=== PATIENT | male | born 1935 | race Caucasian/White ===

== ENCOUNTER → 2017-01-31 | Outpatient (CLI) | payer MEDICARE, BC ==
[~2017-01-31] MED LIST: ISOVUE-370 76% 100ML VIAL (Q9967) As Ordered ONE
--- NOTE | 2017-01-31 10:00 | REP ---
Clinical: Chronic medical renal disease with cystic changes. Technique: Axial precontrast, arterial phase, corticomedullary phase and delayed phase images of the abdomen using 100 ml Isovue 370 intravenous contrast material with coronal and sagittal re-formations. Findings: The kidneys demonstrate mild chronic perinephric stranding without hydronephrosis, nephrolithiasis or mass lesion. Bilateral simple cysts are identified including a 3 cm right parapelvic renal cyst and 7.1 cm right lower pole renal cyst as well as small left renal cysts measuring up to 1.6 cm. Multiple scattered hepatic cysts are identified measuring up to 2 cm maximal diameter. No further hepatic lesions are noted. Spleen, pancreas, gallbladder, and bilateral adrenal glands are normal. Visualized portions of the enteric system are without obstruction or acute inflammatory process. Lung bases demonstrate mild chronic changes. Visualized portions of the heart and pericardium demonstrate atherosclerotic change without pericardial effusion. Impression: Simple appearing hepatic and bilateral renal (right greater than left) cysts as described above. No further hepatic or renal abnormalities are identified. Signed by Tj Moreira MD 01/31/2017 09:51 A
== END ==
LOC: M RAD 09:00
PROVIDERS: ATTEND Internal Medicine Nephrology
DX: N18.3 Chronic kidney disease, stage 3 (moderate) (principal); N28.1 Cyst of kidney, acquired; I12.9 Hypertensive chronic kidney disease with stage 1 through stage 4 chronic kidney disease, or unspecified chronic kidney disease; K76.89 Other specified diseases of liver
CPT/HCPCS: 74170; Q9967

== ENCOUNTER → 2018-01-15 | Outpatient (REF) | payer MEDICARE, BC ==
[2018-01-15 13:52] LABS: FERRITIN 151 NG/ML (26-388); IRON (FE) 91 UG/DL (65-175); PERCENT SATURATION 27.8 % (19.7-50.0); TOTAL IRON BINDING CAPACITY 327 UG/DL (250-450)
[2018-01-15 13:58] LABS: VITAMIN B12 LEVEL 686 PG/ML
[2018-01-15 13:59] LABS: FOLATE 10.9 NG/ML
[2018-01-19 00:07] LABS: METHYLMALONIC ACID 239 nmol/L (0-378)
== END ==
LOC: M LAB REF 13:06
DX: D64.9 Anemia, unspecified (principal)
CPT/HCPCS: 82746

== ENCOUNTER 2020-12-19 09:37 | Emergency (ER) | payer MEDICARE, BC ==
[~2020-12-19] VITALS: Ht 177.8 cm; Wt 71.8 kg
[2020-12-19] MEDS ORDERED: LOSA25TA14 PO (09:58)
[2020-12-19] MEDS ORDERED: LEVO50TA5 PO (09:58)
[2020-12-19] MEDS ORDERED: DONETAB6 PO (09:58)
[2020-12-19 10:32] LABS: BASO % 0.4 % (0.0-1.0); EOS % 0.2 % (0.0-3.0); HEMATOCRIT 40.3 % (42.0-52.0); HEMOGLOBIN 12.8 g/dl (13.5-17.5); LYMPH # 0.9 10^3/uL (1.5-5.0); LYMPH % 8.8 % (24.0-44.0); MEAN CORPUSCULAR HEMOGLOBIN 32.2 pg (27.0-33.0); MEAN CORPUSCULAR HGB CONC 31.8 g/dl (32.0-36.5); MEAN CORPUSCULAR VOLUME 101.3 fl (80.0-96.0); MONO # 0.5 10^3/uL (0.0-0.8); MONO % 5.6 % (2.0-8.0); NEUTROPHILS # 8.2 10^3/uL (1.5-8.5); NEUTROPHILS % 84.5 % (36.0-66.0); PLATELET COUNT, AUTOMATED 325 10^3/uL (150-450); RED BLOOD COUNT 3.98 10^6/uL (4.30-6.10); WHITE BLOOD COUNT 9.7 10^3/uL (4.0-10.0)
--- NOTE | 2020-12-19 10:39 | REP ---
INDICATION: wkness. COMPARISON: None TECHNIQUE: Single AP view of the chest performed portably with the patient upright. FINDINGS: There is increased density inferiorly in the left lung, possibly left lower lobe infiltrate. There is pleural thickening along the left lateral chest wall. There is a nodular density inferiorly in the right lung measuring 13 mm. The right lung is otherwise clear. Cardiac size is normal. The natan, mediastinum, and skeletal structures are unremarkable, except for thoracic scoliosis convex right. IMPRESSION: Pleural thickening along the left lateral chest wall. Increased lung density inferiorly in the left lung, possibly left lower lobe infiltrate. 13 mm lung nodule in the right. <Electronically signed by Victorino Elkins > 12/19/20 [id number]
--- NOTE | 2020-12-19 10:45 | REPVR ---
PROCEDURE INFORMATION: Exam: CT Head Without Contrast Exam date and time: 12/19/2020 10:29 AM Age: 85 years old Clinical indication: Injury or trauma; Fall; Blunt trauma (contusions or hematomas); Additional info: Questionable fall TECHNIQUE: Imaging protocol: Computed tomography of the head without contrast. Radiation optimization: All CT scans at this facility use at least one of these dose optimization techniques: automated exposure control; mA and/or kV adjustment per patient size (includes targeted exams where dose is matched to clinical indication); or iterative reconstruction. COMPARISON: No relevant prior studies available. FINDINGS: Brain: Patchy lucencies in the white matter are nonspecific but most suggestive of chronic microvascular ischemic disease. There is no evidence for large acute cortical infarct. No intracranial hemorrhage or extraaxial collection is identified. There is no significant intracranial mass effect. Cerebral ventricles: The ventricles and sulci are moderately prominent, in concordance with moderate global atrophy. Bones/joints: Unremarkable. No acute fracture. Paranasal sinuses: Visualized sinuses are unremarkable. No fluid levels. Mastoid air cells: Visualized mastoid air cells are well aerated. Soft tissues: Unremarkable. IMPRESSION: No CT evidence for acute intracranial abnormality. Electronically signed by: Tyelr So On 12/19/2020 10:44:57 AM
[2020-12-19 11:02] LABS: ALBUMIN 3.4 GM/DL (3.2-5.2); ALT/SGPT 14 U/L (12-78); BILIRUBIN,DIRECT < 0.1 MG/DL (0.0-0.2); BILIRUBIN,TOTAL 0.3 MG/DL (0.2-1.0); BLOOD UREA NITROGEN 23 MG/DL (7-18); CALCIUM LEVEL 8.5 MG/DL (8.8-10.2); CARBON DIOXIDE LEVEL 27 MEQ/L (21-32); CHLORIDE LEVEL 105 MEQ/L (98-107); CK-MB VALUE MASS 2.2 NG/ML (<3.6); CPK CREATINE PHOSPHOKINASE 104 U/L (39-308); CREATININE FOR GFR 1.46 MG/DL (0.70-1.30); GLOMERULAR FILTRATION RATE 48.6 (>35); GLUCOSE, FASTING 81 MG/DL (70-100); LIPASE 962 U/L (73-393); MB/CK RELATIVE INDEX 2.12 (< OR =4); POTASSIUM SERUM 4.2 MEQ/L (3.5-5.1); SODIUM LEVEL 139 MEQ/L (136-145); TROPONIN I 0.03 NG/ML (< 0.10)
[2020-12-19] MEDS ORDERED: ISOVUE-370 76% 100ML VIAL As Ordered ONE (12:22)
--- NOTE | 2020-12-19 13:28 | REP ---
INDICATION: abnormal cxr, and elev lipase. COMPARISON: Portable plain film study of the chest earlier today. TECHNIQUE: PE chest CT with IV contrast, CT angiography. FINDINGS: There are no emboli in the pulmonary trunk or central pulmonary arteries. There are no emboli in the pulmonary artery lobar or segment branches. There is circumferential irregular pleural thickening in the left hemithorax. There is a small calcific pleural plaque anteriorly in the left hemithorax. There are multiple calcific pleural plaques anteriorly in the right hemithorax without pleural thickening. There is no right lung nodule by CT. Therefore, the nodular density identified on the comparison portable plain film study is likely artifact from the anterior calcific pleural plaque. There is a small left pleural effusion. There is volume loss in the left hemithorax, likely a consequence of the pleural thickening. The thoracic aorta is unremarkable. Cardiac size normal. There is no pericardial effusion. IMPRESSION: There are no infiltrates. There is a 3.4 cm focal density in the left lower lobe, nonspecific, atelectasis versus artifact from pleural effusion versus true lung nodule. There is circumferential irregular pleural thickening in the left hemithorax. There is diffuse volume loss in left hemithorax, possibly secondary to the pleural thickening. There is a small calcific pleural plaque anteriorly in the left hemithorax. There is a small left pleural effusion. There is a nodule like density posteriorly inferiorly in the left lower lobe, nonspecific, atelectasis versus artifact from pleural effusion versus true lung nodule. There is no lung nodule in the right lung. There are calcific pleural plaques anteriorly in the right hemithorax. One of these pleural plaques could mask urate as a lung nodule on plain films. There is no mediastinal or hilar lymph node enlargement. No axillary adenopathy. <Electronically signed by Victorino lEkins > 12/19/20 [id number]
--- NOTE | 2020-12-19 13:45 | REP ---
INDICATION: abnormal cxr, and elev lipase. COMPARISON: Abdomen/pelvis CT dated 01/31/2017 without and with IV contrast. TECHNIQUE: Abdomen/pelvis CT with IV contrast performed contiguously with the chest CT this same date. FINDINGS: There is irregular pleural thickening within the visualized lower lung garcia in the left hemithorax. This was not present previously. There is a small left pleural effusion, not present previously. There is a nodular density versus infiltrate in the left lower lobe on the current study, not present previously. There are several sharply circumscribed hypodensities in the liver, similar to the prior study, compatible with hepatic cysts. The gallbladder is unremarkable and unchanged. The head, body and tail of the pancreas are unremarkable and unchanged. There is no evidence of focal or diffuse pancreatic enlargement. No pancreatic inflammation. No pseudocyst. No pancreatic duct dilatation. There is a Bosniak type 1 3 cm right renal peripelvic cyst, unchanged from the prior study. There is a Bosniak type 1 right renal lower pole 7.7 cm cyst. This measures 7.1 cm previously. There are a few small left renal Bosniak type 1 cysts, unchanged There is no hydronephrosis or perinephric stranding. The abdominal aorta is unremarkable except for calcified atheroma. There is no periaortic adenopathy or mass. The bowel and mesentery are unremarkable except for occasional descending colon and sigmoid colon diverticula without diverticulitis. Pelvis: The bladder is unremarkable. There is no adenopathy or ascites. There is grade 1 concave compression deformity of the L4 vertebral body as an interval change. There is degenerative disc disease at L5-S1. IMPRESSION: The findings in the left lung were not present on the comparison study. The pancreas has an unremarkable appearance by CT. There is no ascites, adenopathy or mass. There are hepatic and renal cysts, not significantly changed. Diverticulosis without diverticulitis. Grade 1 compression deformity of the L4 superior endplate. <Electronically signed by Victorino Elkins > 12/19/20 [id number]
[2020-12-19 14:22] VITALS: BP 143/70
--- NOTE | 2020-12-19 19:09 | ECGEPIP ---
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
--- NOTE | 2020-12-20 06:50 | ED PDOC ---
Post-Departure Follow-Up dr morataya faxed formal report of ct chest and ct abd/p for fu Jose Walsh MD Dec 20, 2020 06:49
== END 2020-12-19 14:30 | disposition home or self-care (01) ==
LOC: EDBD 09:37 → M ED 09:37
DX: R53.1 Weakness (principal); R74.8 Abnormal levels of other serum enzymes; J90 Pleural effusion, not elsewhere classified; R91.8 Other nonspecific abnormal finding of lung field; I10 Essential (primary) hypertension; F03.90 Unspecified dementia, unspecified severity, without behavioral disturbance, psychotic disturbance, mood disturbance, and anxiety; Z79.899 Other long term (current) drug therapy
CPT/HCPCS: 70450; 71045; 71275; 74177; 80048; 80076; 81001; 82550; 82553; 83690; 84484; 85025; 93005; 99285; Q9967

== ENCOUNTER 2021-01-23 13:27 | Inpatient (IN) | payer MEDICARE, BC ==
[~2021-01-23] VITALS: Ht 177.8 cm; Wt 71.1 kg
[~2021-01-23 13:27] MED LIST changes: +DONETAB6 PO; -ISOVUE-370 76% 100ML VIAL (Q9967) As Ordered ONE; +LEVO50TA5 PO; +LOSA25TA14 PO
[2021-01-23] MEDS ORDERED: METOPROLOL TART 25 MG TABLET PO ONE (14:55)
[2021-01-23] MEDS: METOPROLOL 5 MG/5 ML VIAL IV SCH ×2 (15:10→15:17)
[2021-01-23 15:14] LABS: BASO % 0.1 % (0.0-1.0); EOS % 0.1 % (0.0-3.0); HEMATOCRIT 39.8 % (42.0-52.0); HEMOGLOBIN 12.4 g/dl (13.5-17.5); LYMPH # 0.7 10^3/uL (1.5-5.0); LYMPH % 7.5 % (24.0-44.0); MEAN CORPUSCULAR HEMOGLOBIN 31.6 pg (27.0-33.0); MEAN CORPUSCULAR HGB CONC 31.2 g/dl (32.0-36.5); MEAN CORPUSCULAR VOLUME 101.3 fl (80.0-96.0); MONO # 0.6 10^3/uL (0.0-0.8); NEUTROPHILS # 8.2 10^3/uL (1.5-8.5); NEUTROPHILS % 85.6 % (36.0-66.0); PLATELET COUNT, AUTOMATED 417 10^3/uL (150-450); RED BLOOD COUNT 3.93 10^6/uL (4.30-6.10); WHITE BLOOD COUNT 9.5 10^3/uL (4.0-10.0)
[2021-01-23 15:40] LABS: RSV AMPLIFICATION NEGATIVE (NEGATIVE)
[2021-01-23 15:44] LABS: CALCIUM LEVEL 8.5 MG/DL (8.8-10.2); CREATININE FOR GFR 2.05 MG/DL (0.70-1.30); GLOMERULAR FILTRATION RATE 32.9 (>35); MAGNESIUM LEVEL 2.8 MG/DL (1.8-2.4); POTASSIUM SERUM 4.8 MEQ/L (3.5-5.1)
[2021-01-23 15:50] LABS: ALBUMIN 3.3 GM/DL (3.2-5.2); ALT/SGPT 216 U/L (12-78); BILIRUBIN,DIRECT 0.4 MG/DL (0.0-0.2); BILIRUBIN,TOTAL 1.1 MG/DL (0.2-1.0); CK-MB VALUE MASS 3.3 NG/ML (<3.6); CPK CREATINE PHOSPHOKINASE 131 U/L (39-308); LIPASE 435 U/L (73-393); MB/CK RELATIVE INDEX 2.52 (< OR =4); TOTAL PROTEIN 7.1 GM/DL (6.4-8.2); TROPONIN I < 0.02 NG/ML (< 0.10)
[2021-01-23] MEDS ORDERED: NS 500 ML IV ONE (15:50)
--- NOTE | 2021-01-23 16:00 | REP ---
INDICATION: pre-admission. COMPARISON: 12/19/2020 also portable TECHNIQUE: The technique utilized in obtaining the radiograph has magnified the cardiac silhouette and attenuated the interstitial markings. FINDINGS: There is cardiomegaly accentuated by technique. There is unchanged pleural thickening along the left lateral chest wall. There is an unchanged nodule in the right lower lung field. Streaky and patchy opacities are seen in the left lower lobe. These have increased somewhat compared to the prior exam. There is no change in the osseous structures. IMPRESSION: 1. Chronic changes as described above. 2. Persistent left lower lobe opacities which do appear to have increased from the prior exam. Chronic atelectasis suspected, however, pneumonia cannot be ruled out <Electronically signed by Abimael Guzman > 01/23/21 [id number]
[2021-01-23] MEDS ORDERED: METOPROLOL 5 MG/5 ML VIAL IV PRN (17:05)
[2021-01-23] MEDS ORDERED: NS 1,000 ML IV SCH (17:30)
--- NOTE | 2021-01-23 18:03 | HPEPDOC ---
General Date of Admission January 23, 2021 at 16:58 Date of Service: January 23, 2021 Chief Complaint The patient is a 85-year-old male admitted with a reason for visit of Acute Or Chronic Renal Failure Dementia Afib. Source: Family Exam Limitations: Dementia, Hard of hearing History of Present Illness Mr. Aquino is an 85 year old male with dementia and hypertension who presents for declining physical and mental ability and found to have new onset atrial fi brillation and GT on CKD. HE was diagnosed with dementia for 5 to 6 years and has been living with his at home. In the past months, he started to decline. In the past 2 weeks, he needed help to ambulate and had frequent falls. In addition, his appetite has become worse with worsening fatigue and agitation. His is also elderly at 85 years old and has been having trouble taking care of him at home. When he falls, she is having trouble getting him back up. He was brought into the ED. While here, he was found to have new onset atrial fibrillation with RVR. He was given 25mg PO Lopressor and 5mg IV Lopressor which controlled his heart rate. In addition, he was having labored breathing and required 2L of oxygen when he normally does not use oxygen. Work up was significant for acute on chronic renal failure. Patient will be admitted for new onset atrial fibrillation with RVR and GT on CKD. Otherwise, discussed with both daughter (who was present) and (Apurva Aquino [phone], spoke over the phone) about anticoagulation and MOLST. I discussed risks and benefits with and daughter and both are in agreement to starting anticoagulation. I discussed code status, and both in agreement for DNR/DNI. Otherwise, cannot care for patient at home. Patient is falling frequently, and she cannot life him up. is considering placement and would like [facility]. Daughter is a nurse here and would also like [facility]. Home Medications Scheduled Levothyroxine Sodium (Levothyroxine Sodium) 50 Mcg Tablet, 50 MCG PO DAILY, (Re ported) Allergies Coded Allergies: No Known Allergies (Unverified , 12/19/20) Past Medical History Medical History 1. Hypertension 2. Hypothyroidism 3. 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 Hearing loss Surgical History 1. Bilateral cataracts Family History Father: History of [place], HBP, and obesity Mother: History of Alzheimer's dementia, stomach cancer, and hip fracture Social History * Smoker: Denies Alcohol: occationally (beer) Drugs: denies A-FIB/CHADSVASC A-FIB History Current/History of A-Fib/PAF?: Yes Current PO Anticoag Therapy: Yes Age/Risk Factor Scoring CHADSVASC: CHADSVASC Response (Comments) Value Age Risk Factor Age >/= 75 years old 2 Gender Risk Factor Male 0 Hx of CHF No 0 Hx of HTN Yes 1 Hx of Stroke/TIA/or VTE No 0 Hx of Diabetes No 0 Hx of Vascular Disease No 0 Total 3 Treatment Treatment ordered: Apixaban Review of Systems Constitutional: Denies: Chills, Fever Eyes: Reports: Other (legally blind in left eye) ENT: Denies: Head Aches Skin: Denies: Rash Pulmonary: Denies: Dyspnea, Cough Cardiovascular: Denies: Chest Pain Gastrointestinal: Reports: Abdominal Pain (once in a while but not now) Genitourinary: Reports: Dysuria (once in a while but not now), Incontinence Hematologic: Denies: Bruising Neurological: Denies: Numbness Psych: Denies: Depression Physical Examination General Exam: Positive: Alert Eye Exam: Negative: Sclera icteric ENT Exam: Positive: Atraumatic Neck Exam: Positive: Supple Chest Exam: Positive: Clear to auscultation Heart Exam: Positive: Rate Normal, Irregular Rhythm Abdomen Exam: Positive: Normal bowel sounds, Soft; Negative: Tenderness Extremity Exam: Negative: Edema Neuro Exam: Positive: Other (Hard of hearing, could not participatein neurologic exam) Psych Exam: Negative: Memory Intact Vital Signs Vital Signs Date Time Temp Pulse Resp B/P (MAP) Pulse Ox O2 Delivery O2 Flow Rate FiO2 01/23/21 16:15 78 20 130/99 (109) 89 Nasal Cannula 2.0 01/23/21 13:28 96.2 Laboratory Data Labs 24H Laboratory Tests 2 01/23/21 14:28: Immature Granulocyte % (Auto) 0.7, Neutrophils (%) (Auto) 85.6H, Lymphocytes (%) (Auto) 7.5L, Monocytes (%) (Auto) 6.0, Eosinophils (%) (Auto) 0.1, Basophils (%) (Auto) 0.1, Neutrophils # (Auto) 8.2, Lymphocytes # (Auto) 0.7L, Monocytes # (Auto) 0.6, Eosinophils # (Auto) 0.0, Basophils # (Auto) 0.0, Nucleated Red Blood Cells % (auto) 0.3H, Anion Gap 8, Glomerular Filtration Rate 32.9L, Calcium Level 8.5L, Magnesium Level 2.8H, Total Bilirubin 1.1H, Direct Bilirubin 0.4H, Aspartate Amino Transf (AST/SGOT) 116H, Alanine Aminotransferase (ALT/SGPT) 216H, Alkaline Phosphatase 172H, Total Creatine Kinase 131, Creatine Kinase MB 3.3, Creatine Kinase MB Relative Index 2.52, Troponin I < 0.02, Total Protein 7.1, Albumin 3.3, Albumin/Globulin Ratio 0.9, Lipase 435H, Coronavirus (COVID-19)(PCR) NEGATIVE, Influenza Type A (RT-PCR) NEGATIVE, Influenza Type B (RT-PCR) NEGATIVE, Respiratory Syncytial Virus (PCR) NEGATIVE CBC/BMP Laboratory Tests 01/23/21 14:28 Assessment/Plan Mr. Aquino is an 85 year old male with dementia and hypertension who presents for declining physical and mental ability and found to have new onset atrial fibrillation and GT on CKD. Will monitor patient on telemetry and obtain echocardiogram. Patient has hypothyroidism. Will check TSH and free T4 tomorrow. Otherwise, patient has GT on CKD. He has poor appetite and this may be related to poor oral intake. His PCP discontinue losartan two days ago. Will continue monitoring renal function. Patient has physically declined and family is looking for placement at [facility]. Will order PT/OT to evaluate patient. Plan / VTE VTE Prophylaxis Ordered?: Yes Plan Plan 1. New onset atrial fibrillation with RVR -Start metoprolol 25mg TID with holding parameters -Discussed risk and benefits with and daughter. Agreement to starting AC -Starting apixaban 2.5mg BID 2. GT on CKD -Unknown baseline, but last creatinine was 1.46 -Today, Creatinine 2 -PCP had stop Losartan -Patient has poor oral intake as well -Received 500mL fluid bolus in ED -Patient picks on leads and probe. May not be able to give continuous IVF. May do better with intermittent bolus of fluid -Encourage oral intake of fluids -Monitor BMP 3. Dementia -Supportive care -Will order CT head 4. Debility -Patient has become weaker, requiring assist -PT/OT -Patient may need rehab. Family is requesting placement at [facility] 5. Hypothyroidism -Continue levothyroxine -Check TSH and Free T4 -Patient may be non-compliant at home with medication 6. Hypertension -PCP had discontinued losartan -Monitor BP while on Lopressor 7. DVT ppx -Apixaban Disposition: Pending improvement in renal function and PT/OT. Due to his dementia family is looking placement. Patient may need rehab too. Looking into [facility]. BRITTA MOSQUEDA DO January 23, 2021 18:03
--- NOTE | 2021-01-23 18:49 | REPVR ---
PROCEDURE INFORMATION: Exam: CT Head Without Contrast Exam date and time: 01/23/2021 5:58 PM Age: 85 years old Clinical indication: Injury or trauma; Fall; Blunt trauma (contusions or hematomas); Additional info: History of frequent falls, dementia TECHNIQUE: Imaging protocol: Computed tomography of the head without contrast. Radiation optimization: All CT scans at this facility use at least one of these dose optimization techniques: automated exposure control; mA and/or kV adjustment per patient size (includes targeted exams where dose is matched to clinical indication); or iterative reconstruction. COMPARISON: CT Head without contrast 12/19/2020 10:29 AM FINDINGS: Brain: A small chronic lacunar infarct is again visualized within the left basal ganglia. There is a stable small chronic infarct within the right cerebellar lobe. No acute intracranial hemorrhage is visualized. The white-heller differentiation is otherwise preserved demonstrating no acute territorial type infarct. There are periventricular foci of white matter hypodensity, likely representing small vessel ischemic disease. The acuity of the white matter disease is indeterminate. There is no midline shift. Cerebral ventricles: There is moderate prominence of the ventricles and sulci, compatible with atrophy. Bones/joints: The calvarium demonstrates no evidence for a depressed fracture. Paranasal sinuses: Visualized sinuses are unremarkable. No fluid levels. Mastoid air cells: No mastoid effusion. Orbital cavity: Bilateral orbital lens implants. Vasculature: Intracranial atherosclerosis visualized. Soft tissues: Unremarkable. IMPRESSION: 1. No acute intracranial hemorrhage or acute territorial type infarct. 2. A small chronic lacunar infarct is again visualized within the left basal ganglia. There is a stable small chronic infarct within the right cerebellar lobe. 3. There are periventricular foci of white matter hypodensity, likely representing small vessel ischemic disease. 4. Moderate atrophy. Electronically signed by: Silver Guevara On 01/23/2021 18:49:21 PM
[2021-01-23 19:00] VITALS: BP 146/67
[2021-01-23] MEDS: APIXABAN 2.5 MG TAB (ELIQUIS) PO SCH (20:10)
[2021-01-23] MEDS: METOPROLOL TART 25 MG TABLET PO SCH (20:10)
[2021-01-23] MEDS: LORazepam 1 MG TAB PO PRN (20:10)
[2021-01-23] MEDS ORDERED: APIXABAN 5 MG TAB (ELIQUIS) PO SCH (21:00)
[2021-01-23] MEDS: RAMELTEON 8 MG TAB (ROZEREM) PO PRN (22:13)
[2021-01-24] VITALS: BP 147/80
[2021-01-24] MEDS: LORazepam 1 MG TAB PO PRN (02:17)
[2021-01-24 04:00] VITALS: BP 173/83
[2021-01-24] MEDS ORDERED: QUEtiapine FUMARATE 25 MG TAB PO SCH (04:25)
[2021-01-24 04:34] LABS: HEMATOCRIT 35.9 % (42.0-52.0); MEAN CORPUSCULAR HEMOGLOBIN 31.5 pg (27.0-33.0); MEAN CORPUSCULAR HGB CONC 30.6 g/dl (32.0-36.5); MEAN CORPUSCULAR VOLUME 102.9 fl (80.0-96.0); PLATELET COUNT, AUTOMATED 372 10^3/uL (150-450); RED BLOOD COUNT 3.49 10^6/uL (4.30-6.10); WHITE BLOOD COUNT 8.9 10^3/uL (4.0-10.0)
[2021-01-24] MEDS: LEVOTHYROXINE 50MCG TABLET (0.05MG) PO SCH (04:52)
[2021-01-24 05:06] LABS: BLOOD UREA NITROGEN 54 MG/DL (7-18); CALCIUM LEVEL 8.8 MG/DL (8.8-10.2); CARBON DIOXIDE LEVEL 25 MEQ/L (21-32); CHLORIDE LEVEL 105 MEQ/L (98-107); CREATININE FOR GFR 1.81 MG/DL (0.70-1.30); GLOMERULAR FILTRATION RATE 37.9 (>35); GLUCOSE, FASTING 99 MG/DL (70-100); MAGNESIUM LEVEL 2.7 MG/DL (1.8-2.4); POTASSIUM SERUM 4.7 MEQ/L (3.5-5.1); SODIUM LEVEL 137 MEQ/L (136-145)
[2021-01-24] MEDS ORDERED: haloperidoL 1 MG TAB PO PRN (06:10)
[2021-01-24 08:00] VITALS: BP 122/66
--- NOTE | 2021-01-24 09:59 | ECGEPIP ---
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
--- NOTE | 2021-01-24 10:01 | ECGEPIP ---
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
[2021-01-24] MEDS: METOPROLOL TART 25 MG TABLET PO SCH ×3 (11:55→20:35)
[2021-01-24] MEDS: APIXABAN 2.5 MG TAB (ELIQUIS) PO SCH ×2 (11:55→20:34)
[2021-01-24 12:00] VITALS: BP 114/58
--- NOTE | 2021-01-24 15:39 | REP ---
INDICATION: transaminitis, mildly elevated lipase. COMPARISON: None FINDINGS: The technologist has indicated on the worksheet that the examination is extremely limited due to the patient's medical condition. The gallbladder is unremarkable. The common bile duct measures 3 mm. There are multiple anechoic/near anechoic/and septated structures in the liver the largest on the left measures 1.6 x 1.6 x 1.1 cm and the largest on the right measures 1.2 x 1.5 x 1.5 cm. The pancreas cannot be evaluated due to the patient's intestinal gas pattern. Limited evaluation of the imaged portion of the right kidney shows a 6.5 by 7.8 x 7.8 cm sized anechoic structure which exhibits posterior wall enhancement and increased through transmission additionally, in the midpole region there is a 2.6 x 1.2 x 1.8 cm sized structure of similar ultrasound characteristics. IMPRESSION: 1. The exam is limited as described above. 2. Hepatic cysts as described above. Pre and postcontrast enhanced hepatic CT is recommended. 3. Simple appearing renal cysts, however, pre and post contrast enhanced renal CT is recommended for complete evaluation 4. Other findings as described above Accredited by the [employer] in General Ultrasound. <Electronically signed by Abimael Guzman > 01/24/21 [id number]
[2021-01-24 16:00] VITALS: BP 120/73
[2021-01-24 20:00] VITALS: BP 124/88
--- NOTE | 2021-01-24 20:12 | IPNPDOC ---
Subjective Date Seen The patient was seen on 01/24/21. Subjective Chief Complaint/HPI Mr. Aquino is an 85 year old male with dementia and hypertension who presents for declining physical and mental ability and found to have new onset atrial fibrillation and GT on CKD. Overnight he was very agitation. Unable to keep IV or telemetry leads on. He was given Seroquel, Haldol, and Ativan to calm down. This morning, he was sleepy and hard to arouse. He was more awake in the afternoon. Objective Physical Examination General Exam: Positive: Alert Eye Exam: Negative: Sclera icteric ENT Exam: Positive: Atraumatic Neck Exam: Positive: Supple Chest Exam: Positive: Clear to auscultation Heart Exam: Positive: Rate Normal, Irregular Rhythm Abdomen Exam: Positive: Normal bowel sounds, Soft; Negative: Tenderness Extremity Exam: Negative: Edema Neuro Exam: Positive: Other (Hard of hearing, could not participatein neurologic exam) Psych Exam: Negative: Memory Intact Assessment /Plan Assessment Mr. Aquino is an 85 year old male with dementia and hypertension who presents for declining physical and mental ability and found to have new onset atrial f ibrillation and GT on CKD. Will monitor patient on telemetry and obtain echocardiogram. Patient has hypothyroidism. Will check TSH and free T4 tomorrow. Otherwise, patient has GT on CKD. He has poor appetite and this may be related to poor oral intake. His PCP discontinue losartan two days ago. Will continue monitoring renal function. Patient has physically declined and family is looking for placement at [facility]. Will order PT/OT to evaluate patient. Plan/VTE VTE Prophylaxis Ordered?: Yes Plan 1. New onset atrial fibrillation with RVR -Start metoprolol 25mg TID with holding parameters -Discussed risk and benefits with and daughter. Agreement to starting AC -Starting apixaban 2.5mg BID 2. GT on CKD -Unknown baseline, but last creatinine was 1.46 -admission, Creatinine 2 -PCP had stop Losartan -Patient has poor oral intake as well -Received 500mL fluid bolus in ED -Patient picks on leads and probe. May not be able to give continuous IVF. May do better with intermittent bolus of fluid -Encourage oral intake of fluids -Monitor BMP 3. Dementia -Supportive care -Will order CT head 4. Debility -Patient has become weaker, requiring assist -PT/OT -Patient may need rehab. Family is requesting placement at [facility] 5. Hypothyroidism -Continue levothyroxine -TSH 3.93, Free T4 0.90 -Patient may be non-compliant at home with medication 6. Hypertension -PCP had discontinued losartan -Monitor BP while on Lopressor 7. Agitation -Seroquel qHS and PRN Ativan 8. DVT ppx -Apixaban Disposition: Pending improvement in renal function and PT/OT. Due to his dementia family is looking placement. Patient may need rehab too. Looking into [facility]. VS, I&O, 24H, [place] Vital Signs/I&O Vital Signs Date Time Temp Pulse Resp B/P (MAP) Pulse Ox O2 Delivery O2 Flow Rate FiO2 01/24/21 17:01 133 116/68 01/24/21 16:00 97.1 20 97 Room Air 01/23/21 18:55 2.0 I&O- Last 24 Hours up to 6 AM 01/24/21 06:00 Intake Total 500 ml Output Total 0 ml Balance 500 ml Laboratory Data 24H LABS Laboratory Tests 2 01/24/21 04:20: Nucleated Red Blood Cells % (auto) 0.4H, Anion Gap 7L, Glomerular Filtration Rate 37.9, Calcium Level 8.8, Magnesium Level 2.7H, Ammonia < 10, Thyroid Stimu lating Hormone (TSH) 3.930H, Free Thyroxine 0.90 CBC/BMP Laboratory Tests 01/24/21 04:20 BRITTA MOSQUEDA DO January 24, 2021 20:12
[2021-01-24] MEDS: QUEtiapine FUMARATE 25 MG TAB PO SCH (20:34)
[2021-01-25] VITALS (9 sets, daily range): BP systolic 98–136; BP diastolic 56–78
[2021-01-25 05:17] LABS: HEMATOCRIT 36.3 % (42.0-52.0); HEMOGLOBIN 11.3 g/dl (13.5-17.5); MEAN CORPUSCULAR HEMOGLOBIN 32.1 pg (27.0-33.0); MEAN CORPUSCULAR HGB CONC 31.1 g/dl (32.0-36.5); MEAN CORPUSCULAR VOLUME 103.1 fl (80.0-96.0); PLATELET COUNT, AUTOMATED 388 10^3/uL (150-450); RED BLOOD COUNT 3.52 10^6/uL (4.30-6.10); WHITE BLOOD COUNT 8.4 10^3/uL (4.0-10.0)
[2021-01-25 05:38] LABS: ALBUMIN 2.8 GM/DL (3.2-5.2); BILIRUBIN,TOTAL 1.1 MG/DL (0.2-1.0); CALCIUM LEVEL 8.3 MG/DL (8.8-10.2); CREATININE FOR GFR 1.92 MG/DL (0.70-1.30); GLOMERULAR FILTRATION RATE 35.4 (>35); POTASSIUM SERUM 4.6 MEQ/L (3.5-5.1); TOTAL PROTEIN 6.1 GM/DL (6.4-8.2)
[2021-01-25] MEDS ORDERED: NS 500 ML IV ONE ×3 (07:10→12:15)
[2021-01-25] MEDS: APIXABAN 2.5 MG TAB (ELIQUIS) PO SCH ×2 (08:14→20:03)
[2021-01-25] MEDS: METOPROLOL TART 25 MG TABLET PO SCH (08:26)
[2021-01-25] MEDS: LEVOTHYROXINE 50MCG TABLET (0.05MG) PO SCH (08:31)
--- NOTE | 2021-01-25 11:10 | ECHO ---
DATE OF PROCEDURE: 01/24/2021 Age: 85 Gender: Male REFERRING PHYSICIAN: Amish Jansen MD PATIENT LOCATION: Room 3213 REASON FOR THE STUDY: Atrial fibrillation. MEASUREMENTS: 2D measurements: IVS 1.0 cm LV 4.9 cm LVPW 1.1 cm LA 3.7 cm Aorta 3.6 cm RV 3.0 cm Doppler measurements: Not done. 2D COMMENTS: 1. Normal left ventricular size, wall thickness and normal global left ventricular systolic function. The estimated left ventricular systolic ejection is 60 to 65%. 2. Normal left atrium. The right atrium and the right ventricle appear to be mildly enlarged. 3. The atrial septum appears to be normal without evidence of defect or shunt. 4. Normal aortic root. 5. Moderately calcified aortic valve with decreased leaflet excursion. Mildly calcified mitral annulus with normal anterior mitral valve leaflet motion. Normal tricuspid valve. The pulmonic valve and proximal pulmonary artery branches were not well visualized. 6. The inferior vena cava was not well visualized. Doppler: No Doppler measurements done. The patient was uncooperative. IMPRESSION: 1. Technically limited study, the patient was uncooperative during the test. 2. Normal global left ventricular systolic function. 3. The right heart chambers appear to be mildly enlarged. 4. Probably aortic valve stenosis, could not assess the severity because Doppler measurements were not done due to the fact the patient was uncooperative. 5. The patient during the test was in atrial fibrillation with a rapid ventricular rate. MTDD
[2021-01-25 11:14] LABS: HEPATITIS B SURFACE ANTIGEN NEGATIVE (NEGATIVE)
[2021-01-25] MEDS ORDERED: METOPROLOL TART 25 MG TABLET PO ONE ×2 (11:15→15:40)
[2021-01-25 11:42] LABS: HEPATITIS B CORE ANTIBODY IGM NEGATIVE (NEGATIVE); HEPATITIS C VIRUS ABY INDEX < 0.0 INDEX (<0.8)
[2021-01-25 11:44] LABS: HEPATITIS A ANTIBODY IGM NEGATIVE (NEGATIVE)
[2021-01-25] MEDS: METOPROLOL TART 50 MG TAB PO SCH ×2 (15:35→21:18)
[2021-01-25] MEDS ORDERED: METOPROLOL 5 MG/5 ML VIAL IV STA (15:39)
--- NOTE | 2021-01-25 17:14 | IPNPDOC ---
Subjective Date Seen The patient was seen on 01/25/21. Subjective Chief Complaint/HPI Mr. Aquino is an 85 year old male with dementia and hypertension who presents for declining physical and mental ability and found to have new onset atrial fibrillation and GT on CKD. Patient did better last night with evening Seroquel. This morning, he was more cooperative. We were able to place telemetry leads and obtain IV access. Patient still in atrial fibrillation, but sometimes goes into atrial flutter and sinus rhythm. Patient is also dehydrated and has poor oral intake. Fluid boluses and Lopressor has helped his heart rate and b lood pressure. Otherwise, PFS is working with family on obtaining placement Objective Physical Examination General Exam: Positive: Alert Eye Exam: Negative: Sclera icteric ENT Exam: Positive: Atraumatic Neck Exam: Positive: Supple Chest Exam: Positive: Clear to auscultation Heart Exam: Positive: Rate Normal, Irregular Rhythm Abdomen Exam: Positive: Normal bowel sounds, Soft; Negative: Tenderness Extremity Exam: Negative: Edema Neuro Exam: Positive: Other (Hard of hearing, could not participatein neurologic exam) Psych Exam: Negative: Memory Intact Assessment /Plan Assessment Mr. Aquino is an 85 year old male with dementia and hypertension who presents for declining physical and mental ability and found to have new onset atrial fibrillation and GT on CKD. Due to his dementia and debility (fall frequently), his has not been able to care for him at home. PFS working with family to obtain placement. Family is hoping for [facility]. Patient will need PT/OT to evaluate patient. Otherwise, patient is still in atrial fibrillation with RVR. Will continue with PO lopressor and titrate upwards as tolerated. Patient is also dehydrated and has poor oral intake. Patient's GT on CKD is most likely due to poor oral intake. Cautious with continuous fluids as he will try to pull out IV again. May need to do periodic fluid boluses base on his blood pressure and renal function. Plan/VTE VTE Prophylaxis Ordered?: Yes Plan 1. New onset atrial fibrillation with RVR -Start metoprolol 25mg TID with holding parameters. Titrated upwards to 50mg TID -Discussed risk and benefits with and daughter. Agreement to starting AC -Starting apixaban 2.5mg BID 2. GT on CKD -Unknown baseline, but last creatinine was 1.46 -admission, Creatinine 2 -PCP had stop Losartan. Patient also has poor oral intake which most likely contributed to GT. -Patient picks on leads and probe. May not be able to give continuous IVF. May do better with intermittent bolus of fluid -Encourage oral intake of fluids -Monitor BMP 3. Dementia -Supportive care -CT head demonstrates chronic lacunar infarct, chronic stable right cerebellar infarct, and small vessel ischemic disease. 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 Debility -Patient has become weaker, requiring assist -PT/OT -Patient may need rehab. Family is requesting placement at [facility] -Patient has old right cerebellar infarct seen on CT. May be contributing to debility 5. Hypothyroidism -Continue levothyroxine -TSH 3.93, Free T4 0.90 -Patient may be non-compliant at home with medication 6. Hypertension -PCP had discontinued losartan -Monitor BP while on Lopressor 7. Agitation -Seroquel qHS and PRN Ativan 8. Transaminitis -Hepatitis panel negative -US liver demonstrates Hepatic cyst. Can consider pre and post contrast enhanced hepatic CT for further evaluation when renal function improves. -Monitor liver enzymes 9. DVT ppx -Apixaban Disposition: Pending improvement in renal function and atrial fibrillation. Also pending PT/OT. Due to his dementia and debility, family is looking placement at [facility]. unable to care for patient at home. VS, I&O, 24H, Fishbone Vital Signs/I&O Vital Signs Date Time Temp Pulse Resp B/P (MAP) Pulse Ox O2 Delivery O2 Flow Rate FiO2 01/25/21 15:50 150 112/58 01/25/21 08:00 97.6 18 93 Room Air 01/23/21 18:55 2.0 I&O- Last 24 Hours up to 6 AM 01/25/21 06:00 Intake Total 200 ml Balance 200 ml Laboratory Data 24H LABS Laboratory Tests 2 01/25/21 04:31: Nucleated Red Blood Cells % (auto) 0.7H, Anion Gap 6L, Glomerular Filtration Rate 35.4, Calcium Level 8.3L, Total Bilirubin 1.1H, Aspartate Amino Transf (AST/SGOT) 93H, Alanine Aminotransferase (ALT/SGPT) 187H, Alkaline Phosphatase 149H, Total Protein 6.1L, Albumin 2.8L, Albumin/Globulin Ratio 0.8 CBC/BMP Laboratory Tests 01/25/21 04:31 BRITTA MOSQUEDA DO January 25, 2021 17:14
[2021-01-25] MEDS: RAMELTEON 8 MG TAB (ROZEREM) PO PRN (19:38)
[2021-01-25] MEDS: QUEtiapine FUMARATE 25 MG TAB PO SCH (20:04)
[2021-01-26] VITALS (25 sets, daily range): BP systolic 102–180; BP diastolic 59–129
[2021-01-26] MEDS: LORazepam 2 MG/ML VIAL IV PRN ×4 (01:19→21:11)
[2021-01-26] MEDS: LEVOTHYROXINE 50MCG TABLET (0.05MG) PO SCH ×2 (06:00→06:44)
[2021-01-26 08:23] LABS: HEMATOCRIT 39.2 % (42.0-52.0); HEMOGLOBIN 12.2 g/dl (13.5-17.5); MEAN CORPUSCULAR HEMOGLOBIN 32.1 pg (27.0-33.0); MEAN CORPUSCULAR HGB CONC 31.1 g/dl (32.0-36.5); MEAN CORPUSCULAR VOLUME 103.2 fl (80.0-96.0); PLATELET COUNT, AUTOMATED 386 10^3/uL (150-450); WHITE BLOOD COUNT 9.4 10^3/uL (4.0-10.0)
[2021-01-26] MEDS: APIXABAN 2.5 MG TAB (ELIQUIS) PO SCH ×2 (08:37→20:07)
[2021-01-26] MEDS: METOPROLOL TART 50 MG TAB PO SCH ×2 (08:37→16:00)
[2021-01-26 08:47] LABS: ALBUMIN 2.7 GM/DL (3.2-5.2); CALCIUM LEVEL 8.2 MG/DL (8.8-10.2); CREATININE FOR GFR 1.6 MG/DL (0.70-1.30); GLOMERULAR FILTRATION RATE 43.7 (>35); POTASSIUM SERUM 4.1 MEQ/L (3.5-5.1); TOTAL PROTEIN 6.2 GM/DL (6.4-8.2)
--- NOTE | 2021-01-26 08:51 | REP ---
INDICATION: Dyspnea/Wheezing. COMPARISON: 01/23/2021. TECHNIQUE: Single portable AP view of the chest was performed. FINDINGS: There is mild cardiomegaly. There is increased vascular congestion. There are diffuse increased interstitial markings, as well as mildly increased bibasilar hazy alveolar opacities. The findings suggest CHF and pulmonary edema. Diffuse irregular pleural thickening is again noted in the left. Consolidative opacities again noted in the left retrocardiac region.The mediastinal silhouette is unchanged. IMPRESSION: Increased vascular congestion with diffuse increase in interstitial markings as well as increased bibasilar alveolar opacities, suggesting the development of CHF and pulmonary edema.Underlying pneumonia cannot be ruled out. <Electronically signed by Victorino Rand > 01/26/21 0842
[2021-01-26] MEDS ORDERED: HALOPERIDOL 5MG/ML VIAL (J1630 PER 1) IM STA (13:08)
[2021-01-26] MEDS ORDERED: METOPROLOL 5 MG/5 ML VIAL IV STA ×3 (13:12→18:13)
[2021-01-26] MEDS: METOPROLOL 5 MG/5 ML VIAL IV SCH ×3 (13:20→14:40)
[2021-01-26] MEDS ORDERED: AMIODARONE HCL 150 MG/100 ML PREMIXED BAG (NEXTERONE) (J0282 PER 30MG) As Ordered ONE (13:23)
[2021-01-26] MEDS ORDERED: AMIODARONE HCL 150 MG in IV 1 EA IV ONE ×2 (13:30→13:50)
[2021-01-26] MEDS ORDERED: LORazepam 2 MG/ML VIAL IV STA (14:25)
--- NOTE | 2021-01-26 17:57 | IPNPDOC ---
Date Seen The patient was seen on 01/26/21. Progress Note SUBJECTIVE: Mr. Aquino is an 85 year old male with dementia and hypertension who presents for declining physical and mental ability and found to have new onset atrial fibrillation and GT on CKD. Due to his dementia and debility (fall frequently), his has not been able to care for him at home. PFS working with family to obtain placement. Family is hoping for [facility]. Patient will need PT/OT to evaluate patient. OBJECTIVE PHYSICAL EXAMINATION: VITAL SIGNS: please see below General: NAD, comfortable HEENT: PERRLA, EOMI, sclerae clear Neck: supple, normal ROM, no JVD Respiratory: lungs CTAB, no wheeze, no rales, no crackles CVS: irregularly irregular, normal S1, S2, no murmurs Abdo: soft, no masses, no hepatosplenomegaly, BS+, no rebound tenderness Extremities: no edema, pulses 2+ MSK: no joint deformities, normal ROM Neuro: no focal neuro deficits, moving all 4 extremities, CN2-12 intact. Strength 5/5 in all 4 extremities. No nystagmus. Psych: calm, cooperative, AAO x 3 LABORATORY DATA, IMAGING STUDIES, MICROBIOLOGY: Please see below. Echocardiogram: 2D echo from 01/23/21: 1. Normal left ventricular size, wall thickness and normal global left ventricular systolic function. The estimated left ventricular systolic ejectionis 60 to 65%. 2. Normal left atrium. The right atrium and the right ventricle appear to be mildly enlarged. 3. The atrial septum appears to be normal without evidence of defect or shunt. 4. Normal aortic root. 5. Moderately calcified aortic valve with decreased leaflet excursion. Mildly calcified mitral annulus with normal anterior mitral valve leaflet motion. Normal tricuspid valve. The pulmonic valve and proximal pulmonary artery branches were not well visualized. 6. The inferior vena cava was not well visualized. ASSESSMENT AND PLAN: PROBLEMS: 1. New onset atrial fibrillation with RVR - possible related to delirium superimposed on dementia - refractory to metoprolol - received two 150 mg amiodarone doses today - cardiology consult placed, d/w Dr. Sargent - started on amiodarone drip - check ekg in am 2. GT on CKD -Unknown baseline, but last creatinine was 1.46 -admission, Creatinine 2 -Losartan was stopped by PCP - Creatinine improving, now 1.60 3. Dementia -Supportive care -CT head demonstrates chronic lacunar infarct, chronic stable right cerebellar infarct, and small vessel ischemic disease. 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 Debility -Patient has become weaker, requiring assist -PT/OT -Patient may need rehab. Family is requesting placement at [facility] -Patient has old right cerebellar infarct seen on CT. May be contributing to debility 5. Hypothyroidism -Continue levothyroxine -TSH 3.93, Free T4 0.90 -Patient may be non-compliant at home with medication - will need to monitor TFTs if continues on amiodarone 6. Hypertension - holding metoprolol 7. Agitation -will hold seroquel and ativan 8. Transaminitis -Hepatitis panel negative -US liver demonstrates Hepatic cyst. Can consider pre and post contrast enhanced hepatic CT for further evaluation when renal function improves. -Monitor liver enzymes 9. DVT ppx -Apixaban Disposition: Pending improvement in renal function and atrial fibrillation. Also pending PT/OT. Due to his dementia and debility, family is looking placement at [facility]. unable to care for patient at home. VS, I&O, 24H, Fishbone Vital Signs/I&O Vital Signs Date Time Temp Pulse Resp B/P (MAP) Pulse Ox O2 Delivery O2 Flow Rate FiO2 01/26/21 16:30 66 22 132/72 (92) 99 Nasal Cannula 4.0 01/26/21 12:00 97.3 I&O- Last 24 Hours up to 6 AM 01/26/21 06:00 Intake Total 170 ml Balance 170 ml Laboratory Data 24H LABS Laboratory Tests 2 01/26/21 07:56: Nucleated Red Blood Cells % (auto) 0.2H, Anion Gap 7L, Glomerular Filtration Rate 43.7, Calcium Level 8.2L, Total Bilirubin 1.0, Aspartate Amino Transf (AST/SGOT) 51H, Alanine Aminotransferase (ALT/SGPT) 149H, Alkaline Phosphatase 149H, Total Protein 6.2L, Albumin 2.7L, Albumin/Globulin Ratio 0.8 CBC/BMP Laboratory Tests 01/26/21 07:56 FARRUKH BRIGHT MD January 26, 2021 17:57
[2021-01-26] MEDS ORDERED: AMIODARONE HCL 360 MG in IV 1 EA IV SCH (18:30)
[2021-01-26] MEDS ORDERED: AMIODARONE 200 MG TAB (PACERONE) PO SCH (21:00)
[2021-01-26] MEDS ORDERED: ACETAMINOPHEN *IV* 1,000 MG in IV 1 EA IV ONE (22:40)
[2021-01-26] MEDS ORDERED: AMIODARONE HCL 150 MG in IV 1 EA IV STA (23:37)
[2021-01-27] VITALS: BP 139/84
[2021-01-27 01:00] VITALS: BP 136/79
[2021-01-27] MEDS ORDERED: AMIODARONE HCL 360 MG in IV 1 EA IV SCH (01:00)
[2021-01-27 01:08] LABS: CALCIUM LEVEL 8.7 MG/DL (8.8-10.2); MAGNESIUM LEVEL 2.4 MG/DL (1.8-2.4); POTASSIUM SERUM 4.4 MEQ/L (3.5-5.1); TROPONIN I < 0.02 NG/ML (< 0.10)
[2021-01-27] MEDS ORDERED: KETOROLAC 30 MG/ML 1ML VIAL IV ONE (02:15)
[2021-01-27 02:41] LABS: HEMATOCRIT 38.9 % (42.0-52.0); HEMOGLOBIN 11.9 g/dl (13.5-17.5); MEAN CORPUSCULAR HEMOGLOBIN 33.1 pg (27.0-33.0); MEAN CORPUSCULAR HGB CONC 30.6 g/dl (32.0-36.5); MEAN CORPUSCULAR VOLUME 108.1 fl (80.0-96.0); PLATELET COUNT, AUTOMATED 326 10^3/uL (150-450); WHITE BLOOD COUNT 10.6 10^3/uL (4.0-10.0)
--- NOTE | 2021-01-27 03:09 | REPVR ---
PROCEDURE INFORMATION: Exam: CT Head Without Contrast Exam date and time: 01/27/2021 2:12 AM Age: 85 years old Clinical indication: Altered mental status/memory loss; Confusion or disorientation; Additional info: Abnormal TECHNIQUE: Imaging protocol: Computed tomography of the head without contrast. Radiation optimization: All CT scans at this facility use at least one of these dose optimization techniques: automated exposure control; mA and/or kV adjustment per patient size (includes targeted exams where dose is matched to clinical indication); or iterative reconstruction. COMPARISON: CT Head without contrast 01/23/2021 5:41 PM FINDINGS: Brain: There is minimal patchy low attenuation of deep white matter. There is mild prominence of the peripheral sulci. Cerebral ventricles: There is moderate prominence of the central ventricular system. Bones/joints: Unremarkable. No acute fracture. Paranasal sinuses: Visualized sinuses are unremarkable. No fluid levels. Mastoid air cells: Visualized mastoid air cells are well aerated. Soft tissues: Unremarkable. IMPRESSION: Minimal chronic ischemic white matter change and moderate atrophy which is similar to 01/23/2021. No acute interval intracranial process is identified. Electronically signed by: Malik Hinojosa On 01/27/2021 03:08:34 AM
--- NOTE | 2021-01-27 03:21 | IPNPDOC ---
Text Note Date of Service The patient was seen on 01/27/21. NOTE time of service 220am 's daughter is concerned bc her father's speech has been garbled since Monday, his telemonitor shows Vtach and he has been . Per d/w his RN Tiffany the patient has been in RVR this evening w a rate as high as 180s, he received an additional dose of Amiodarone ( ordered the med after d/w w ) had a run of NSVT lasting 10.3 sec. At the time of my vist the patient was asleep. #Abnormal speech. Pt refused 2 doses of his DOAC Plan: f/u repeat CT head to r/o CVA #Delirium Plan: daughter is present to help reorient the patient / he has been receiving Ativan PRN per the primary team # Afib w RVR I explained to the patient's daughter that his HR is labile and has been as low as the 50s, it will take some time for the Amiodarone to start working and that I will hold off giving additional meds to control his rate to avoid causing heart block #NSVT K, Trop, Mg wnl. Plan: f/u EKG VS,Fishbone, I+O VS, Fishbone, I+O Laboratory Tests 01/26/21 07:56 01/27/21 00:00 01/27/21 02:34 Vital Signs Date Time Temp Pulse Resp B/P (MAP) Pulse Ox O2 Delivery O2 Flow Rate FiO2 01/27/21 01:00 97.4 165 26 136/79 (98) 91 Room Air 01/26/21 19:45 4.0 I&O- Last 24 Hours up to 6 AM 01/27/21 06:00 Intake Total 0 ml Balance 0 ml KEELY BENNETT MD January 27, 2021 03:21
[2021-01-27 03:40] LABS: ALBUMIN 2.6 GM/DL (3.2-5.2); BILIRUBIN,TOTAL 0.8 MG/DL (0.2-1.0); CALCIUM LEVEL 8.1 MG/DL (8.8-10.2); CREATININE FOR GFR 1.77 MG/DL (0.70-1.30); GLOMERULAR FILTRATION RATE 38.9 (>35); TOTAL PROTEIN 5.9 GM/DL (6.4-8.2)
[2021-01-27 04:00] VITALS: BP 149/89
[2021-01-27 05:24] LABS: APPEARANCE, URINE HAZY (CLEAR); BACTERIA, URINE AUTO NEGATIVE (NEGATIVE); BILIRUBIN, URINE AUTO NEGATIVE (NEGATIVE); BLOOD, URINE BLOOD 2+ (NEGATIVE); COLOR, URINE YELLOW (YELLOW); GLUCOSE, URINE (UA) AUTO NEGATIVE (NEGATIVE); KETONE, URINE AUTO NEGATIVE (NEGATIVE); LEUKOCYTE ESTERASE, URINE AUTO NEGATIVE (NEGATIVE); MUCUS, URINE SMALL (NEGATIVE); NITRITE, URINE AUTO NEGATIVE (NEGATIVE); PROTEIN, URINE AUTO 1+ mg/dL (NEGATIVE); RBC, URINE AUTO 63 /HPF (0-3); SPECIFIC GRAVITY URINE AUTO 1.027 (1.002-1.035); SQUAMOUS EPITHELIAL CELL UR AU 0 /HPF (0-6); UROBILINOGEN, URINE AUTO 0.2 mg/dL (0.0-2.0); WBC, URINE AUTO 1 /HPF (0-3)
[2021-01-27] MEDS: LEVOTHYROXINE 50MCG TABLET (0.05MG) PO SCH (06:00)
[2021-01-27 08:05] VITALS: BP 139/84
--- NOTE | 2021-01-27 08:40 | REP ---
INDICATION: elevated BNP. COMPARISON: 01/26/2021. TECHNIQUE: Single portable AP view of the chest was performed. FINDINGS: Mild cardiomegaly and vascular congestion persists. There stable increased interstitial markings bilaterally. Left pleural thickening is again noted as well as stable left basilar consolidative opacity. IMPRESSION: Stable exam. <Electronically signed by Victorino Rand > 01/27/21 0846
[2021-01-27] MEDS ORDERED: AMIODARONE HCL IV SCH (08:45)
[2021-01-27] MEDS ORDERED: ENOXAPARIN 80MG/0.8ML SYRINGE (J1650 PER 10MG) SC SCH (09:00)
[2021-01-27 09:22] LABS: BASO % 0.2 % (0.0-1.0); EOS % 0.3 % (0.0-3.0); HEMATOCRIT 36.9 % (42.0-52.0); HEMOGLOBIN 11.3 g/dl (13.5-17.5); LYMPH # 0.7 10^3/uL (1.5-5.0); LYMPH % 6.6 % (24.0-44.0); MEAN CORPUSCULAR HEMOGLOBIN 31.9 pg (27.0-33.0); MEAN CORPUSCULAR HGB CONC 30.6 g/dl (32.0-36.5); MEAN CORPUSCULAR VOLUME 104.2 fl (80.0-96.0); MONO # 0.5 10^3/uL (0.0-0.8); MONO % 5.4 % (2.0-8.0); NEUTROPHILS # 8.6 10^3/uL (1.5-8.5); NEUTROPHILS % 86.7 % (36.0-66.0); PLATELET COUNT, AUTOMATED 357 10^3/uL (150-450); RED BLOOD COUNT 3.54 10^6/uL (4.30-6.10); WHITE BLOOD COUNT 9.9 10^3/uL (4.0-10.0)
[2021-01-27 09:52] LABS: ALBUMIN 2.5 GM/DL (3.2-5.2); ALT/SGPT 115 U/L (12-78); BILIRUBIN,TOTAL 0.7 MG/DL (0.2-1.0); BLOOD UREA NITROGEN 42 MG/DL (7-18); CALCIUM LEVEL 8.1 MG/DL (8.8-10.2); CARBON DIOXIDE LEVEL 25 MEQ/L (21-32); CHLORIDE LEVEL 110 MEQ/L (98-107); CREATININE FOR GFR 1.88 MG/DL (0.70-1.30); GLOMERULAR FILTRATION RATE 36.3 (>35); GLUCOSE, FASTING 133 MG/DL (70-100); MAGNESIUM LEVEL 2.4 MG/DL (1.8-2.4); POTASSIUM SERUM 3.9 MEQ/L (3.5-5.1); SODIUM LEVEL 142 MEQ/L (136-145); TOTAL PROTEIN 5.7 GM/DL (6.4-8.2); TROPONIN I < 0.02 NG/ML (< 0.10)
--- NOTE | 2021-01-27 09:59 | IPNPDOC ---
Text Note Date of Service The patient was seen on 01/27/21. NOTE Cardiology consultation. Date 01/27/2021. Referring physician: Dr. Martino Consulting physician: Dr. Sargent. Reason for consultation: Atrial fibrillation with rapid ventricular rate. History of present illness: Mr. Aquino is a 85-year-old male patient with PMH dementia, HTN, hypothyroidism, hearing loss, CKD who presented to ED with declining physical and mental ability and was found to have new-onset atrial fibrillation and AK I on CK D. He was diagnosed with dementia 5-6 years ago and lives with his at home. He had a gradual decline in his status over the last month, last 2 weeks he did have difficulty in ambulation and had frequent falls. In addition to d ecreased appetite, worsening fatigue and agitation. In the ED and patient was found to be in A. fib with RVR and was treated with 25 mg by mouth and Lopressor and 5 mg IV Lopressor which controlled his heart rate initially. He has difficulty in breathing and is put on 2 L of oxygen [no supplemental oxygen at home]. Patient was admitted for further management of new onset atrial fibrillation with RVR and AK I on CK D. Cardiology was consulted for the management of new onset A. fib with RVR. Cardiology was contacted yesterday for this patient. He was given IV metoprolol push but did not respond very well and his heart rate was in 180s. Later Was recommend to start on amiodarone drip IV, but patient was so agitated overnight he did pull out the IV due to his delirium [not sure at what time]. Overnight patient did have a 10 second nonsustained VT potassium, troponin and magnesium were checked which were normal limits and the EKG did not show any changes. Today morning patient was examined at bedside. Patient looked agitated but not in any acute distress. He is still in A. fib with RVR rate running from 150 to 180s. Patient was nonconversant and could not obtain much of the history from the patient most of the history mentioned is from this HPI. Past medical history: Delirium Hypertension Hypothyroidism Legally blind in left eye Hearing loss. Past surgical history: Bilateral cataract surgeries. Family history: Father: History of ND, hypertension and obesity. Mother: History of Alzheimer's dementia, stomach cancer. Social history: Denies any smoking history Occasionally drinks beer. Denies any illicit drug use. Review of systems: Patient was not conversant. Physical exam: Vital signs: Temperature 90.8, pulse 179, respiratory rate 22, blood pressure 139/84 mmHg, saturating 93% on room air. Gen. examination: Patient is agitated, and delirium state. Does not appear to be in any acute distress. The patient was very drowsy likely from his medications for delirium. Cardiac: Irregularly irregular heart rate, no murmurs appreciated, S1 and S2 heard. Respiratory: Lungs are clear to auscultation bilaterally, no wheezes appreciated. Abdomen: Soft, no tenderness to palpation in all 4 quadrants, positive bowel sounds heard. Extremities: 2+ pulses bilaterally, no pedal edema. Neurological: Difficult to assess as patient was agitated and could not follow commands. Overnight when daughter was present she reported that the patient's speech has been garbled since Monday and he did get a CT scan of the head overnight to rule out CVA. Imaging: Head CT done on 01/27/2021: Reported as: Minimal chronic ischemic white matter changes and moderate atrophy which is similar to 01/23/2021, no acute interval intracranial processes is identified. Chest x-ray: Done on 01/27/2021: Reported as stable exam. Labs: WBC 10.6, hemoglobin 11.9, hematocrit 38.9, platelet 326. Sodium 143, potassium 4, chloride 112, bicarbonate 23, BUN 40, creatinine 1.77, GFR 38.9, troponin less than 0.02, BNP 7632. UA 1+ urinary protein, 2+ urine blood, RBC 63. Blood cultures pending. Assessment and plan: 85-year-old male patient with history of dementia diagnosed 5-6 years ago, hypertension, hypothyroidism, CK D presented to the ED with declining mental status and delirium state. In the ED patient did have atrial fibrillation with rapid ventricular response. He was initially treated with Lopressor in the ED. Patient was admitted for management of A. fib with RVR, delirium, AK I on CK D. Atrial fibrillation with rapid ventricular response: - Patient is in A. fib most of the night with a brief return to sinus rhythm after placing on amiodarone but patient was agitated from his delirium and pulled out the IV and could not tolerate IV amiodarone infusion. - Patient also had a brief 10 second nonsustained VT overnight.[ Electrolytes were within normal range no elevation of troponin and EKG was normal following the episode] - At this point of time given the patient's delirium state and unable to take any oral medications [due to the risk of aspiration] IV medications are the only source for him. Having said that he wouldn't given his agitation he is not able to tolerate continuous IV medication. - IV metoprolol can be given but it only lasts for maybe 20-30 minutes given its short lifetime. - Patient would not be a candidate for digoxin given his V. tach and delirium. - He would be a candidate for IV amiodarone continuous infusion but he is not able to tolerate it given his agitation from delirium. In this circumstance the only option left for him is giving him IV amiodarone and 150 mg twice a day at a slow infusion over 30 minutes to avoid any hypotension. - For anticoagulation given that patient cannot tolerate oral medication Eliquis is out of picture, he could not tolerate continuous IV medication heparin is not the medication of choice, the other option is Lovenox even given his GT on CKD and age will start him on Lovenox 1 mg per KG once daily [reduced dose]. Patient's delirium state is complicating the care for A. fib with RVR. Delirium: - And has a baseline dementia since 5-6 years. - This point of time the major cause of his delirium is likely his age and underlying dementia and might be some medications. - Given the patient's delirium his 30 day mortality Risk is very high up to 12- 13%. - Patient is getting IM Haldol and Ativan for his agitation. Today morning patient was drowsy likely from his medications. 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 And that discussion is to be brought up to family and that will be done by the hospitalist team. Addendum MD Dilan: I have seen and examined the patient with . I agree with her note above. Briefly 85yo man with rapidly progressive dementia and no prior h/o cardiac disease presenting with delirium and AF with RVR. Medication selection is limited by his agitated state (he would not take oral medications and pulls out iv infusions). I believe that sc lovenox .075mg/kg daily is the best option for anticoagulation. I would use iv Amiodarone in bid dosing for rate/rhythm control. Patient's prognosis is very poor and I would consider palliative management. VS,Myrae, I+O VS, Hubone, I+O Laboratory Tests 01/27/21 00:00 01/27/21 02:34 Vital Signs Date Time Temp Pulse Resp B/P (MAP) Pulse Ox O2 Delivery O2 Flow Rate FiO2 01/27/21 08:05 98.0 179 22 139/84 (102) 93 Room Air 01/26/21 19:45 4.0 I&O- Last 24 Hours up to 6 AM 01/27/21 06:00 Intake Total 0 ml Balance 0 ml Betzy Hebert MD January 27, 2021 09:58 Lucas Sargent MD January 29, 2021 12:40
[2021-01-27] MEDS ORDERED: AMIODARONE HCL 150 MG in IV 1 EA IV SCH (10:00)
[2021-01-27] MEDS ORDERED: SCOPOLAMINE 1MG TRANSDERMAL PATCH TOP PRN (15:15)
[2021-01-27] MEDS ORDERED: ACETAMINOPHEN TAB 650MG DOSE (2X325MG) PO PRN (15:15)
[2021-01-27] MEDS ORDERED: HYOSCYAMINE SULFATE 0.125 MG SUBL TABLET PO PRN (15:15)
[2021-01-27] MEDS ORDERED: ONDANSETRON 4MG/2ML VIAL IV PRN (15:15)
[2021-01-27] MEDS ORDERED: LORazepam 2 MG/ML VIAL IV PRN (15:15)
[2021-01-27] MEDS ORDERED: MORPHINE 2 MG/ML 1ML VIAL (J2270) IV PRN (15:15)
[2021-01-27] MEDS ORDERED: ATROPINE SULFATE 1% OP SOLN 2 ML BTL SL PRN (15:15)
[2021-01-27] MEDS ORDERED: BISACODYL 10 MG SUPP PR PRN (15:15)
[2021-01-27] MEDS ORDERED: MORPHINE 10MG/0.5ML ORAL CONCENTRATE SOLUTION U/D SL PRN (15:15)
[2021-01-27] MEDS ORDERED: FLEET ENEMA PR PRN (15:15)
--- NOTE | 2021-01-27 16:42 | ECGEPIP ---
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 Baseline noise. Septal infarct , Likely old. Increased heart rate and PVCs new Compared with 01/23/2021. Electronically Signed on 01-27-2021 16:41:47 EDT by Kris Mackenzie
[2021-01-27] MEDS: LORazepam 1 MG TAB PO PRN (17:58)
[2021-01-27] MEDS: QUEtiapine FUMARATE 25 MG TAB PO SCH (20:08)
[2021-01-27] MEDS: RAMELTEON 8 MG TAB (ROZEREM) PO PRN (20:08)
--- NOTE | 2021-01-27 22:15 | IPNPDOC ---
Date Seen The patient was seen on 01/27/21. Progress Note SUBJECTIVE: Mr. Aquino is an 85 year old male with dementia and hypertension who presents for declining physical and mental ability and found to have new onset atrial fibrillation and GT on CKD. Due to his dementia and debility (fall frequently), his has not been able to care for him at home. Cardiology was consulted for refractory afib. Poor prognosis. Family decided for [employer]. OBJECTIVE PHYSICAL EXAMINATION: VITAL SIGNS: please see below General: NAD, comfortable HEENT: PERRLA, EOMI, sclerae clear Neck: supple, normal ROM, no JVD Respiratory: lungs CTAB, no wheeze, no rales, no crackles CVS: irregularly irregular, normal S1, S2, no murmurs Abdo: soft, no masses, no hepatosplenomegaly, BS+, no rebound tenderness Extremities: no edema, pulses 2+ MSK: no joint deformities, normal ROM Neuro: no focal neuro deficits, moving all 4 extremities, CN2-12 intact. Strength 5/5 in all 4 extremities. Disoriented, confused. Not following commands. Delirius LABORATORY DATA, IMAGING STUDIES, MICROBIOLOGY: Please see below. Echocardiogram: 2D echo from 01/23/21: 1. Normal left ventricular size, wall thickness and normal global left ventricular systolic function. The estimated left ventricular systolic ejectionis 60 to 65%. 2. Normal left atrium. The right atrium and the right ventricle appear to be mildly enlarged. 3. The atrial septum appears to be normal without evidence of defect or shunt. 4. Normal aortic root. 5. Moderately calcified aortic valve with decreased leaflet excursion. Mildly calcified mitral annulus with normal anterior mitral valve leaflet motion. Normal tricuspid valve. The pulmonic valve and proximal pulmonary artery branches were not well visualized. 6. The inferior vena cava was not well visualized. ASSESSMENT AND PLAN: PROBLEMS: 1. New onset atrial fibrillation with RVR - possible related to delirium superimposed on dementia - refractory to metoprolol - received two 150 mg amiodarone doses today - cardiology consult placed, d/w Dr. Sargent. Poor prognosis. - family decided for [employer] - DC amiodarone, AC 2. GT on CKD -Unknown baseline, but last creatinine was 1.46 -admission, Creatinine 2 -Losartan was stopped by PCP - Creatinine improving, now 1.60 3. Dementia -Supportive care -CT head demonstrates chronic lacunar infarct, chronic stable right cerebellar infarct, and small vessel ischemic disease. 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 Debility -Patient has become weaker, requiring assist -PT/OT -Patient may need rehab. Family is requesting placement at [facility] -Patient has old right cerebellar infarct seen on CT. May be contributing to debility 5. Hypothyroidism -Continue levothyroxine -TSH 3.93, Free T4 0.90 -Patient may be non-compliant at home with medication - will need to monitor TFTs if continues on amiodarone 6. Hypertension - holding metoprolol 7. Agitation -will hold seroquel - now [employer] status, resume ativa prn. 8. Transaminitis -Hepatitis panel negative -US liver demonstrates Hepatic cyst. Can consider pre and post contrast enhanced hepatic CT for further evaluation when renal function improves. -Monitor liver enzymes 9. DVT ppx -stopped apixaban Disposition: had lengthy GOC meeting with family, including patient's and daughter Liudmila Aquino (healthcare POA). Family decide for [employer] given poor prognosis in setting of refractory afib and severe delirium. Hospice consult placed. C[employer] orders in place. VS, I&O, 24H, Hubonnadeem Vital Signs/I&O Vital Signs Date Time Temp Pulse Resp B/P (MAP) Pulse Ox O2 Delivery O2 Flow Rate FiO2 01/27/21 12:00 98.6 22 01/27/21 08:05 179 139/84 (102) 93 Room Air 01/26/21 19:45 4.0 I&O- Last 24 Hours up to 6 AM 01/27/21 06:00 Intake Total 0 ml Balance 0 ml Laboratory Data 24H LABS Laboratory Tests 2 01/26/21 22:42: Bedside Glucose (Misc Panel) 113H 01/27/21 00:00: Calcium Level 8.7L, Magnesium Level 2.4, Ammonia < 10, Troponin I < 0.02 01/27/21 02:34: Calcium Level 8.1L, Nucleated Red Blood Cells % (auto) 0.3H, Anion Gap 8, Glomerular Filtration Rate 38.9, Total Bilirubin 0.8, Aspartate Amino Transf (AST/SGOT) 40H, Alanine Aminotransferase (ALT/SGPT) 123H, Alkaline Phosphatase 128H, KP-Glo-K-Type Natriuretic Peptide 7632H, Total Protein 5.9L, Albumin 2.6L, Albumin/Globulin Ratio 0.8 01/27/21 05:04: Urine Color YELLOW, Urine Appearance HAZY, Urine pH 5.0, Urine Specific [place] 1.027, Urine Protein 1+H, Urine Glucose (Auto)(UA) NEGATIVE, Urine Ketones (Auto) NEGATIVE, Urine Blood 2+H, Urine Nitrite NEGATIVE, Urine Bilirubin NEGATIVE, Urine Urobilinogen 0.2, Urine Leukocyte Esterase (Auto) NEGATIVE, Urine WBC (Auto) 1, Urine RBC (Auto) 63H, Urine Hyaline Casts (Auto) 4, Urine Bacteria (Auto) NEGATIVE, Urine Squamous Epithelial Cells 0, Urine Mucus (Auto) SMALL, Urine Sperm (Auto) 01/27/21 09:08: Immature Granulocyte % (Auto) 0.8, Neutrophils (%) (Auto) 86.7H, Lymphocytes (%) (Auto) 6.6L, Monocytes (%) (Auto) 5.4, Eosinophils (%) (Auto) 0.3, Basophils (%) (Auto) 0.2, Neutrophils # (Auto) 8.6H, Lymphocytes # (Auto) 0.7L, Monocytes # (Auto) 0.5, Eosinophils # (Auto) 0.0, Basophils # (Auto) 0.0, Nucleated Red Blood Cells % (auto) 0.0, Anion Gap 7L, Glomerular Filtration Rate 36.3, Calcium Level 8.1L, Magnesium Level 2.4, Total Bilirubin 0.7, Aspartate Amino Transf (AST/SGOT) 36, Alanine Aminotransferase (ALT/SGPT) 115H, Alkaline Phosphatase 125H, Troponin I < 0.02, Total Protein 5.7L, Albumin 2.5L, Albumin/Globulin Ratio 0.8 CBC/BMP Laboratory Tests 01/27/21 00:00 01/27/21 02:34 01/27/21 09:08 Microbiology Microbiology 01/27/21 Blood Culture, Received Pending FARRUKH BRIGHT MD January 27, 2021 22:15
[2021-01-28] MEDS: LEVOTHYROXINE 50MCG TABLET (0.05MG) PO SCH (05:33)
[2021-01-28] MEDS: LORazepam 1 MG TAB PO PRN (09:07)
--- NOTE | 2021-01-28 11:38 | DS.PDOC ---
Discharge Summary General Date of Admission January 23, 2021 at 16:58 Date of Discharge 01/28/21 Discharge Summary PROCEDURES PERFORMED DURING STAY: [None]. ADMITTING DIAGNOSES: 1. . DISCHARGE DIAGNOSES: 1. . COMPLICATIONS/CHIEF COMPLAINT: Acute Or Chronic Renal Failure Dementia Afib. HISTORY OF PRESENT ILLNESS: . HOSPITAL COURSE: . DISCHARGE MEDICATIONS: Please see below. ALLERGIES: Please see below. PHYSICAL EXAMINATION ON DISCHARGE: VITAL SIGNS: Please see below. GENERAL: HEENT: NECK: CARDIOVASCULAR EXAMINATION: RESPIRATORY EXAMINATION: ABDOMINAL EXAMINATION: EXTREMITIES: SKIN: NEUROLOGICAL EXAMINATION: PSYCHIATRIC EXAMINATION: LABORATORY DATA: Please see below. IMAGING: PROGNOSIS: ACTIVITY: [As tolerated]. DIET: DISCHARGE PLAN: DISPOSITION: . DISCHARGE INSTRUCTIONS: 1. . ITEMS TO FOLLOWUP ON ON OUTPATIENT: 1. . DISCHARGE CONDITION: [Stable]. TIME SPENT ON DISCHARGE: Greater than minutes. Vital Signs/I&Os Vital Signs Date Time Temp Pulse Resp B/P (MAP) Pulse Ox O2 Delivery O2 Flow Rate FiO2 01/27/21 21:00 2.0 01/27/21 12:00 98.6 22 01/27/21 08:05 179 139/84 (102) 93 Room Air I&O- Last 24 Hours up to 6 AM 01/28/21 06:00 Intake Total 545 ml Output Total 0 ml Balance 545 ml Microbiology Microbiology 01/28/21 Respiratory Virus Panel (PCR) (WINNIE), Received Pending 01/27/21 Blood Culture - Preliminary, Resulted No growth after 24 hours . All specim... Discharge Medications Scheduled Levothyroxine Sodium (Levothyroxine Sodium) 50 Mcg Tablet, 50 MCG PO DAILY, (Reported) Allergies Coded Allergies: No Known Allergies (Unverified , 12/19/20) FARRUKH BRIGHT MD January 28, 2021 11:38
[2021-01-28] MEDS ORDERED: ACET1TAB55 PO (11:48)
[2021-01-28] MEDS ORDERED: MORP20SO3 PO (11:48)
[2021-01-28] MEDS ORDERED: RAME8TAB2 PO (11:48)
[2021-01-28] MEDS ORDERED: HYOS125TA PO (11:48)
[2021-01-28] MEDS ORDERED: ATIV1TAB10 PO (11:48)
[2021-01-28] MEDS ORDERED: QUET25TA3 PO (11:48)
== END 2021-01-28 13:00 | DRG 309 ==
LOC: M ED 13:27 → M ED INP 16:58 → ENRESERV 18:05 → M PCU 19:17 → M MS5PR 01-27 18:37
PROVIDERS: ADMIT Internal Medicine; ATTEND Family Medicine
DX: I48.91 Unspecified atrial fibrillation (principal); N17.9 Acute kidney failure, unspecified; F03.91 Unspecified dementia, unspecified severity, with behavioral disturbance; I47.2 Ventricular tachycardia; N18.9 Chronic kidney disease, unspecified; I10 Essential (primary) hypertension; R53.81 Other malaise; E03.9 Hypothyroidism, unspecified; R29.6 Repeated falls; Z79.899 Other long term (current) drug therapy; H54.8 Legal blindness, as defined in USA